=== PATIENT | male | born 1960 | race Caucasian/White ===

== ENCOUNTER → 2018-01-19 | Outpatient (CLI) | payer OTHER ==
[~2018-01-19] MED LIST: ASPCH81X PO; CLOBETASOL PROPIONAT XX; CLOP1TAB15 PO; METO25TA56 PO; METR0.75 TOP; RANI150T85 PO
--- NOTE | 2018-01-19 09:37 | DIAGNOSTIC IMAGING REPORT ---
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 TECHNIQUE: Frontal and lateral views of the left lower leg were obtained. COMPARISON: None. FINDINGS: Knee joint and ankle mortise grossly intact. No acute fracture or malalignment. No advanced degenerative change. No radiographic soft tissue abnormality. IMPRESSION: No acute osseous injury. Electronically signed by: Laureano Ferraro M.D. 01/19/2018 9:36 AM Dictated Date/Time: 01/19/2018 9:34 AM
--- NOTE | 2018-01-19 09:45 | DIAGNOSTIC IMAGING REPORT ---
LEFT KNEE ULTRASOUND CLINICAL HISTORY: G57.30 Peroneal neuropathy at knee. Left knee pain. COMPARISON STUDY: Lower extremity venous Doppler 07/15/2016. FINDINGS: Real-time sonographic imaging of the left lateral knee and popliteal fossa was performed. No sonographic abnormality identified within the soft tissues. The popliteal vein is patent. No evidence for a popliteal cyst. IMPRESSION: No sonographic abnormality within the left knee. Electronically signed by: Baljinder Olivera M.D. 01/19/2018 9:44 AM Dictated Date/Time: 01/19/2018 9:42 AM
== END | disposition home or self-care (01) ==
LOC: C.ULTRBC 09:13
PROVIDERS: ATTEND Physician Assistant
DX: G57.30 Lesion of lateral popliteal nerve, unspecified lower limb (principal)

== ENCOUNTER 2019-03-31 13:29 | Inpatient (IN) ==
--- OUTSIDE RECORDS SUMMARY | 2019-03-31 13:34 | External Medical Summary | Continuity of Care Document ---
:1960 Author Name Horace Stoner, Provider Address Unavailable Unavailable , Care Team Providers Name Role Phone Unavailable Unavailable Unavailable NELLY SANCHEZ Unavailable Unavailable Unavailable Unavailable Unavailable Problems Rosacea (695.3) (L71.9) Other psoriasis (696.1) (L40.8) HTN, goal below 140/90 (401.9) (I10) Disc disorder of lumbar region (722.93) (M51.9) Thoracic and lumbosacral neuritis (724.4) (M54.14) Hyperlipidemia (272.4) (E78.5) Acquired renal cyst of right kidney (593.2) (N28.1) Carotid stenosis, non-symptomatic (433.10) (I65.29) Atherosclerosis with claudication of extremity (440.21) (I70 .219) GERD (gastroesophageal reflux disease) (530.81) (K21.9) Rhabdomyolysis due to statin therapy (728.88) (M62.82) Left arm weakness (729.89) (R29.898) Numbness in left leg (782.0) (R20.0) Arteriosclerosis of both carotid arteries (433.10) (I65.23) Dyslipidemia, goal LDL below 70 (272.4) (E78.5) Generalized weakness (780.79) (R53.1) Left middle cerebral artery stroke (434.91) (I63.512) Statins contraindicated (V64.1) (Z53.09) Chronic vascular insufficiency of intestine (557.1) (K55.1) Spinal stenosis of lumbar region without neurogenic claudication (724.02) (M48.061) Left foot drop (736.79) (M21.372) Peroneal neuropathy at knee (355.3) (G57.30) 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 Quantity: 15 Refills: 0 Clopidogrel Bisulfate 75 MG Oral Tablet; TAKE 1 TABLET DAILY . , M.D. 30 Tablet Bottle Refills: 0 Metoprolol Tartrate 25 MG Oral Tablet; TAKE 1 TABLET TWICE D Herbie LOPEZ Quantity: 60 Refills: 5 Aspirin 81 MG TABS; TAKE 1 TABLET DAILY. , M.D. Refills: 0 raNITIdine HCl - 150 MG Oral Tablet; TAKE 1 TABLET Daily PRN , M.D. Refills: 0 Procedures History of appendectomy Status: Complete d History of lumbar vertebral fusion Statu s: Completed History of gallbladder surgery Status: C ompleted History of bypass graft Status: Complete d Immunizations Immunizations not documented Family History Mother No pertinent family history (V49.89) (Z78.9) Status: Active Father No pertinent family history (V49.89) (Z78.9) Status: Active Plan of Treatment Planned Observations Planned Goals not documented Results No Known Results Results not documented Encounters Appointment; Renate Arriaza PA-C 14-Jan-2018 9:30 Encounter Diagnosis: Problem not documented Appointment; Samina Stiles III, M.D. 14-Jan-2018 9:30 Encounter Diagnosis: Problem not documented Appointment; Samina Stiles III, M.D. 30-Dec-2017 14:00 Encounter Diagnosis: Problem not documented Appointment; Samina Stiles III, M.D. 01-Dec-2017 8:00 Encounter Diagnosis: Problem not documented
[2019-03-31] MEDS ORDERED: NiCARDipine HCL INJ 2.5 MG/ML 10 ML AMP ONE (13:42)
[2019-03-31] MEDS ORDERED: fentaNYL citrate 100 MCG/2 ML VIAL ONE ×3 (13:42→14:17)
[2019-03-31] MEDS ORDERED: HEPARIN (PORCINE) 1000 UNIT/ML 10 ML (CATH LAB USE ONLY) ONE ×2 (13:42→15:17)
[2019-03-31] MEDS ORDERED: MIDAZOLAM HCL 1 MG/ML 2ML VIAL ONE ×2 (13:42→14:17)
[2019-03-31] MEDS ORDERED: NITROGLYCERIN/D5W 100MCG/ML 20ML SYR ONE (13:43)
[2019-03-31] MEDS ORDERED: SODIUM CHLORIDE 0.9% 1000ML 1,000 ML IV SCH ×3 (13:45→16:15)
[2019-03-31] MEDS ORDERED: fentaNYL citrate 100 MCG/2 ML VIAL IV STA (13:46)
[2019-03-31] MEDS ORDERED: ONDANSETRON INJ 2 MG/ML 2 ML VIAL IV STA (13:46)
--- NOTE | 2019-03-31 14:05 | XRay Report ---
XR chest 1V portable CLINICAL HISTORY: Chest pain COMPARISON STUDY: Chest radiograph and chest CT July 15, 2016. FINDINGS: Lung volumes are normal. There is no pneumothorax or pleural effusion. There is no consolid ation or evidence for pulmonary edema. Cardiac size is normal. Mediastinal contours are normal. Appea yeimi of the chest is unchanged. IMPRESSION: No acute cardiopulmonary findings. Electronically signed by: Michael Blunt M.D. 03/31/2019 2:03 PM
[2019-03-31] MEDS ORDERED: ONDANSETRON INJ 2 MG/ML 2 ML VIAL ONE (14:06)
--- NOTE | 2019-03-31 14:06 | Emergency Department Note ---
Entered by Nuvia Brito acting as a scribe for History of Present Illness General Chief complaint: Cardiac Assessment Time Seen by Provider: 03/31/19 13:34 Source: patient, EMS and other (nursing staff) History of Present Illness Provider complaint: nausea Onset (ago): minute(s) (shortly prior to arrival) Location: chest and abdomen Current Pain Intensity: 5 Quality: + other (nausea) Associated symptoms: + other (hot, dizzy) Treatments prior to arrival: other (Solu-Medrol, Benadryl IM) The patient is a 58 year old male who presents to the Emergency Department with nausea today shortly prior to arrival. He rates his discomfort at a 4 or a 5 out of a 10. The patient states that he was having an outpatient CT done and had a reaction to the dye. The patient states that he was having a CT done for abdominal pain and arterial problems in his GI tract. He states that he was sent here for a reaction to the dye and also got hot, dizzy, and nauseous. The patient states that he "does not believe that the heart attack happened." The patient states that he is on aspirin and Plavix. Per EMS, the patient's ECG was consistent with a STEMI. Nursing staff states that the patient was given Solu-Medrol and Benadryl IM prior to arrival. Home Medications Home Medications Medication Instructions Recorded Confirmed Type aspirin 81 mg PO DAILY 03/31/19 03/31/19 History clopidogrel 75 mg PO DAILY 03/31/19 03/31/19 History lisinopril [Zestril] 5 mg PO QAM 30 Days #30 tab 03/31/19 Rx metoprolol tartrate 25 mg PO BID 03/31/19 03/31/19 History ranitidine HCl 150 mg PO DAILY PRN 03/31/19 03/31/19 History Allergies Allergy/AdvReac Type Severity Reaction Status Date / Time Iodinated Contrast- Oral and Allergy Severe Verified 03/31/19 17:17 IV Dye [id number]-Opt Reductase AdvReac Intermediate GI SYMPTOMS Verified 10/13/16 16:59 Inhibitor Past Med/Surg History Medical History Diabetes (Chronic) Foot drop, left (Chronic) PVD (peripheral vascular disease) (Chronic) S/P left common iliac stent via left femoral approach performed by Dr. Friedman at [facility] on 03/01/11 for LLE claudication. Guillain Smyth syndrome (Chronic) Post op. 2016 CVA (cerebral vascular accident) (Chronic) 2016 - lacunar infart GERD (gastroesophageal reflux disease) (Chronic) History of ventricular tachycardia (Chronic) H/O post op non-sustained VT in 2010 Mesenteric ischemia (Chronic) 12/28/10: S/P SMA angioplasty and stenting (6 mm x 15 mm balloon expandable stent proximally and 5 mm x 24 mm balloon expandable stent distally) for mesenteric ischemia 12/28/[address] Friedman. At present still having nausea difficult to distinguish this from coronary angina 10/18/11: S/P balloon angioplasty of superior mesenteric artery for in-stent restenosis on by Dr. Friedman at [facility], performed for recurrent symptoms of mesenteric ischemia. 06/13/12: S/P redo superior mesenteric artery angioplasty and stenting using 6 mm x 22 mm iCAST covered stent by Dr. Friedman at [facility], performed for recurrent symptoms of mesenteric ischemia. 05/27/16: S/P Superior mesenteric artery catheterization and angiography by Dr. Anglin at [facility] 05/27/16: S/P supraceliac aorta to common hepatic artery Dacron bypass graft [OCCLUDED], Supraceliac aorta to superior mesenteric artery Dacron bypass graft by Dr. Anglin on 05/27/16 06/17/18: S/P re-do mesenteric artery bypass from left external iliac artery to distal superior mesenteric artery branch using reversed right greater saphenous vein by Dr. Friedman at [facility] HTN (hypertension) (Chronic) Dyslipidemia (Chronic) Renal insufficiency (Chronic) Surgical History History of cholecystectomy (Chronic) History of appendectomy (Chronic) Family History Other Cancer Social History Preferred Language: Mongolian Communication Ability: Effective Beliefs That Will Affect Care: None Current Living Situation: Alone Other Information That Helps Us Care for You: No Feels Safe at Home: Yes Safety Concerns: Feels Safe At This Time Smoking Status: Former smoker Hx Alcohol Use: No Hx Substance Use: No Review of Systems See HPI for pertinent positives & negatives. and A total of 10 systems reviewed and were otherwise negative Physical Exam Vital Signs Vital Signs - 24 hr 03/31/19 13:44 03/31/19 13:48 Temperature 36.3 C L Temperature Source Oral Sepsis Recent Fever Within 48 Hours No Sepsis New/Unexplained Change in Mental Status No Sepsis Action Taken by Nursing No Action Required Pulse Rate 71 Pulse Rate [Left Finger] 78 Respiratory Rate 20 24 Respiratory Effort / Characteristics Non-Labored Spontaneous Respiratory Depth Normal Respiratory Pattern Regular Blood Pressure 173/110 H Blood Pressure [Left Arm] 173/110 H Blood Pressure Mean 131 Blood Pressure Mean [Left Arm] 131 Pulse Oximetry 97 96 Oxygen Delivery Method Room Air Room Air GENERAL: Awake, alert, uncomfortable and anxious-appearing. HENT: Normocephalic, atraumatic. Oropharynx with dry mucous membranes and otherwise unremarkable without oropharyngeal injection, edema, tongue elevation or trismus. EYES: Normal conjunctiva. Sclera non-icteric. NECK: Supple. No nuchal rigidity. FROM. No JVD. No Stridor. RESPIRATORY: Clear to auscultation bilaterally. CARDIAC: Regular rate, normal rhythm. Extremities warm and well perfused. Pulses equal. ABDOMEN: Soft, non-distended. No tenderness to palpation. No rebound or guarding. No masses. RECTAL: Deferred. MUSCULOSKELETAL: Chest examination reveals no tenderness. The back is symmet rical on inspection without obvious abnormality. There is no CVA tenderness to palpation. No joint edema. LOWER EXTREMITIES: Calves are equal size bilaterally and non-tender. No edema. No discoloration. NEURO: Normal sensorium. No sensory or motor deficits noted. SKIN: Mild erythema/flushing of the face and chest. Course 1334: The patient was evaluated in room B2. A history and physical were performed. 1338: A heart alert was called on the patient. 1350: Dr. Hudson is aware of the patient. He will be going to the catheterization lab. 1402: I discussed the patient's case with Rhonda Evnas who will evaluate the patient for further management. Consultations Consultation #1: Rhonda Evans Time: 14:02 Administered Medications Discontinued Medications Clopidogrel Bisulfate (Plavix) Confirm Administered Dose 600 mg .ROUTE .[facility]-MED ONE Stop: 03/31/19 15:13 Last Admin: 03/31/19 15:58 Dose: Not Given Documented by: [id number] Fentanyl Citrate (Fentanyl Citrate) Confirm Administered Dose 100 mcg .ROUTE .STK-MED ONE Stop: 03/31/19 13:43 Last Increment: 03/31/19 13:53 Dose: 50 mcg Documented by: [id number] Fentanyl Citrate (Fentanyl Citrate) 50 mcg IV NOW STA Stop: 03/31/19 13:47 Last Admin: 03/31/19 15:57 Dose: Not Given Documented by: [id number] Fentanyl Citrate (Fentanyl Citrate) Confirm Administered Dose 100 mcg .ROUTE .STK-MED ONE Stop: 03/31/19 13:51 Last Admin: 03/31/19 15:57 Dose: Not Given Documented by: [id number] Fentanyl Citrate (Fentanyl Citrate) Confirm Administered Dose 100 mcg .ROUTE .STK-MED ONE Stop: 03/31/19 14:18 Last Admin: 03/31/19 15:58 Dose: Not Given Documented by: [id number] Heparin Sodium (Porcine) (Heparin Iv Bolus ([facility] Use Only)) Confirm Administered Dose 10,000 units .ROUTE .ST-MED ONE Stop: 03/31/19 13:43 Last Admin: 03/31/19 15:56 Dose: Not Given Documented by: [id number] Heparin Sodium (Porcine) (Heparin Iv Bolus ([facility] Use Only)) Confirm Administered Dose 10,000 units .ROUTE .ST-MED ONE Stop: 03/31/19 15:18 Last Admin: 03/31/19 15:58 Dose: Not Given Documented by: [id number] Heparin Sodium/Sodium Chloride (Heparin/Nss 1000 Unit/500ml Flush Bag) Confirm Administered Dose 3,000 units IV .STK-MED ONE Stop: 03/31/19 13:43 Last Admin: 03/31/19 15:56 Dose: Not Given Documented by: [id number] Hydrocortisone Sodium Succinate (Solu-Cortef) Confirm Administered Dose 200 mg .ROUTE .STK-MED ONE Stop: 03/31/19 14:08 Last Admin: 03/31/19 15:58 Dose: Not Given Documented by: [id number] Sodium Chloride (Nss 1000ml) 1,000 mls @ 999 mls/hr IV .[id number] [facility] Stop: 03/31/19 14:45 Last Admin: 03/31/19 15:57 Dose: Not Given Documented by: [id number] Sodium Chloride (Nss 1000ml) 1,000 mls @ 80 mls/hr IV .[id number] [facility] Stop: 03/31/19 16:01 Last Infusion: 03/31/19 16:53 Dose: 0 mls/hr Documented by: [id number] Admin: 03/31/19 16:01 Dose: 80 mls/hr Documented by: [id number] Nitroglycerin/Dextrose (Nitroglycerin/D5w 100 Mcg/Ml) 250 mls @ 0 mls/hr IV .Q0M JARVIS; Protocol Stop: 04/30/19 15:59 Last Titration: 03/31/19 16:08 Dose: 0 mcg/min, 0 mls/hr Documented by: [id number] Admin: 03/31/19 16:03 Dose: 20 mcg/min, 12 mls/hr Documented by: [id number] Cosigned by: [id number] Sodium Chloride (Nss 1000ml) 1,000 mls @ 80 mls/hr IV .[id number] [facility] Stop: 04/30/19 16:14 Last Admin: 03/31/19 16:52 Dose: 80 mls/hr Documented by: [id number] Labetalol HCl (Normodyne ([facility]inator Use Only)) Confirm Administered Dose 5 mg .ROUTE .STK-MED ONE Stop: 03/31/19 14:24 Last Admin: 03/31/19 15:58 Dose: Not Given Documented by: [id number] Midazolam HCl (Versed) Confirm Administered Dose 2 mg .ROUTE .STK-MED ONE Stop: 03/31/19 13:43 Last Admin: 03/31/19 15:57 Dose: Not Given Documented by: [id number] Midazolam HCl (Versed) Confirm Administered Dose 2 mg .ROUTE .STK-MED ONE Stop: 03/31/19 14:18 Last Admin: 03/31/19 15:58 Dose: Not Given Documented by: [id number] Morphine Sulfate (Morphine Sulfate) Confirm Administered Dose 2 mg .ROUTE .STK- MED ONE Stop: 03/31/19 16:32 Last Admin: 03/31/19 16:51 Dose: Not Given Documented by: [id number] Morphine Sulfate (Morphine Sulfate) 2 mg IV NOW STA Stop: 03/31/19 16:46 Last Admin: 03/31/19 16:51 Dose: 2 mg Documented by: [id number] Morphine Sulfate (Morphine Sulfate) 1 mg IV NOW STA Stop: 03/31/19 17:30 Last Admin: 03/31/19 17:36 Dose: 1 mg Documented by: [id number] Nicardipine HCl (Cardene) Confirm Administered Dose 25 mg .ROUTE .STK-MED ONE Stop: 03/31/19 13:43 Last Admin: 03/31/19 15:56 Dose: Not Given Documented by: [id number] Nitroglycerin/Dextrose (Nitroglycerin/D5w 100 Mcg/Ml 20ml Syringe) Confirm Administered Dose 2,000 mcg .ROUTE .STK-MED ONE Stop: 03/31/19 13:44 Last Admin: 03/31/19 16:04 Dose: Not Given Documented by: [id number] Nitroglycerin/Dextrose (Nitroglycerin/D5w 100 Mcg/Ml) Confirm Administered Dose 25 mg .ROUTE .STK-MED ONE Stop: 03/31/19 15:53 Last Admin: 03/31/19 16:04 Dose: Not Given Documented by: [id number] Ondansetron HCl (Zofran) 4 mg IV NOW STA Stop: 03/31/19 13:47 Last Admin: 03/31/19 15:57 Dose: Not Given Documented by: [id number] Ondansetron HCl (Zofran) Confirm Administered Dose 4 mg .ROUTE .STK-MED ONE Stop: 03/31/19 14:07 Last Admin: 03/31/19 15:40 Dose: 4 mg Documented by: [id number] Ticagrelor (Brilinta) Confirm Administered Dose 180 mg PO .STK-MED ONE Stop: 03/31/19 15:11 Last Admin: 03/31/19 15:58 Dose: Not Given Documented by: [id number] Medical Decision Making Differential Diagnosis Differential diagnosis: Etiologies such as shingles, musculoskeletal pain, pericarditis, myocarditis, cardiac ischemia, pericardial tamponade, pneumonia, pneumothorax, pleural effusion, hemothorax, pleurisy, aortic pathology, pulmonary embolism, intra- abdominal process, as well as others were considered. Medical Records Attestation: I reviewed the patient's medical records. Home Medications Current Medication List: was personally reviewed by me Laboratory Data Attestation: I reviewed the patient's lab results. Result diagrams: 03/31/19 14:17 03/31/19 15:55 Lab Results 03/31/19 03/31/19 03/31/19 Range/Units 14:17 14:17 14:17 WBC 21.59 H (4.8-10.8) K/uL RBC 5.52 (4.7-6.1) M/uL Hgb 16.4 (14.0-18.0) g/dL Hct 48.2 (42-52) % MCV 87.3 (80-100) fL MCH 29.7 (25-34) pg MCHC 34.0 (32-36) g/dL RDW Std Deviation 45.7 (36.4-46.3) fL RDW Coeff of Pepe 14.3 (11.5-14.5) % Plt Count 252 (130-400) K/uL MPV 9.9 (7.4-10.4) fL Immature Gran % (Auto) 0.4 % Neut % (Auto) 91.4 % Lymph % (Auto) 4.7 % [place] % (Auto) 3.5 % Eos % (Auto) 0.0 % Baso % (Auto) 0.0 % Immature Gran # (Auto) 0.09 H (0.00-0.02) K/uL Neut # (Auto) 19.71 H (1.4-6.5) K/uL Lymph # (Auto) 1.01 L (1.2-3.4) K/uL [place] # (Auto) 0.76 H (0.11-0.59) K/uL Eos # (Auto) 0.01 (0-0.5) K/uL Baso # (Auto) 0.01 (0-0.2) K/uL PT 10.2 (9.0-12.0) Seconds INR 1.0 (0.9-1.1) APTT 20.8 L (21.0-31.0) Seconds PTT Ratio 0.8 Activ Coag Time Kaolin (94-140) SECONDS Sodium 137 (136-145) mmol/L Potassium (3.5-5.1) mmol/L Chloride 108 H (98-107) mmol/L Carbon Dioxide 19 L (21-32) mmol/L Anion Gap 10.0 (3-11) BUN 20 H (7-18) mg/dl Creatinine 1.17 (0.6-1.4) mg/dl Est Cr Clr Drug Dosing 71.1 ml/min Est GFR ( Amer) 79.2 Est GFR (Non-Af Amer) 68.3 BUN/Creatinine Ratio 16.7 (10-20) Glucose 188 H (70-99) mg/dl Calcium 8.6 (8.5-10.1) mg/dl Magnesium (1.8-2.4) mg/dl Total Bilirubin 1.4 H (0.2-1) mg/dl AST (15-37) U/L ALT 27 (12-78) U/L Alkaline Phosphatase 73 (45-117) U/L Total Creatine Kinase (39-308) U/L CK-MB (CK-2) 3.5 (0.5-3.6) ng/ml CK/CKMB % Calc TNP Troponin I < 0.015 (0-0.045) ng/ml Total Protein 7.0 (6.4-8.2) gm/dl Albumin 3.4 (3.4-5.0) gm/dl Globulin 3.6 (2.5-4.0) gm/dl Albumin/Globulin Ratio 0.9 (0.9-2) Lipase 142 (73-393) U/L TSH 0.742 (0.300-4.500) uIu/ml 03/31/19 03/31/19 Range/Units 14:37 15:13 WBC (4.8-10.8) K/uL RBC (4.7-6.1) M/uL Hgb (14.0-18.0) g/dL Hct (42-52) % MCV (80-100) fL MCH (25-34) pg MCHC (32-36) g/dL RDW Std Deviation (36.4-46.3) fL RDW Coeff of Pepe (11.5-14.5) % Plt Count (130-400) K/uL MPV (7.4-10.4) fL Immature Gran % (Auto) % Neut % (Auto) % Lymph % (Auto) % [place] % (Auto) % Eos % (Auto) % Baso % (Auto) % Immature Gran # (Auto) (0.00-0.02) K/uL Neut # (Auto) (1.4-6.5) K/uL Lymph # (Auto) (1.2-3.4) K/uL [place] # (Auto) (0.11-0.59) K/uL Eos # (Auto) (0-0.5) K/uL Baso # (Auto) (0-0.2) K/uL PT (9.0-12.0) Seconds INR (0.9-1.1) APTT (21.0-31.0) Seconds PTT Ratio Activ Coag Time Kaolin 92 L 213 H (94-140) SECONDS Sodium (136-145) mmol/L Potassium (3.5-5.1) mmol/L Chloride (98-107) mmol/L Carbon Dioxide (21-32) mmol/L Anion Gap (3-11) BUN (7-18) mg/dl Creatinine (0.6-1.4) mg/dl Est Cr Clr Drug Dosing ml/min Est GFR ( Amer) Est GFR (Non-Af Amer) BUN/Creatinine Ratio (10-20) Glucose (70-99) mg/dl Calcium (8.5-10.1) mg/dl Magnesium (1.8-2.4) mg/dl Total Bilirubin (0.2-1) mg/dl AST (15-37) U/L ALT (12-78) U/L Alkaline Phosphatase (45-117) U/L Total Creatine Kinase (39-308) U/L CK-MB (CK-2) (0.5-3.6) ng/ml CK/CKMB % Calc Troponin I (0-0.045) ng/ml Total Protein (6.4-8.2) gm/dl Albumin (3.4-5.0) gm/dl Globulin (2.5-4.0) gm/dl Albumin/Globulin Ratio (0.9-2) Lipase (73-393) U/L TSH (0.300-4.500) uIu/ml Imaging Data Radiologist's Impression: Radiology results as stated below per my review and the radiologist's interpretation: XR chest 1V portable CLINICAL HISTORY: Chest pain COMPARISON STUDY: Chest radiograph and chest CT July 15, 2016. FINDINGS: Lung volumes are normal. There is no pneumothorax or pleural effusion. There is no consolidation or evidence for pulmonary edema. Cardiac size is normal. Mediastinal contours are normal. Appearance of the chest is unchanged. IMPRESSION: No acute cardiopulmonary findings. Electronically signed by: Michael Blunt M.D. 03/31/2019 2:03 PM ECG Data Attestation: I personally reviewed and interpreted this ECG as follows: Indication: nausea Rate (beats per minute): 69 Rhythm: normal sinus Findings: + other (normal axis, t-wave flattening in aVL); no PAC, no PVC, no ST depression, no ST elevation, no acute ischemic change and no ectopy Blood Pressure Blood Pressure Findings: Elevated blood pressure Blood Pressure Disposition: further management by hospitalist TANNER Narrative 50-year-old gentleman with a past medical history of PAD with history of mesenteric ischemia with multiple vascular procedures to his SMA including angioplasty and stenting as well as left common iliac stent by vascular surgery [facility], history of CVA, hypertension, renal insufficiency who presents emergency department for inferior ST elevation PR which occurred in the setting of having outpatient CT of his abdomen and pelvis with IV contrast in the setting of being pretreated for history of contrast allergy but subsequently developing allergic reaction where he developed flushing and subsequently became nauseated and diaphoretic with subsequent EKG demonstrating inferior ST elevations with reciprocal anterior ST depressions per hpi. I discussed the case with Dr. Mosher, [facility] cardiology who became involved in the patient's care at [facility] and described the patient's episode and subsequent EKG changes. Upon the patient's allergic reaction he was given 125 mg of Solu- Medrol and 50 mg of Benadryl in addition to 325 mg of aspirin. Upon arrival the patient is uncomfortable, anxious appearing, afebrile with stable vital signs. On exam the patient has mild continued flushing of his face and chest. Lungs are clear with no oral pharyngeal edema. No stridor. EKG transmitted by EMS and performed in the emergency department upon arrival show interim resolution of patient's ST elevations though with residual T wave flattening in aVL. Accompanying EKG from [facility] however does demonstrate initial concerning EKG changes demonstrating ST elevation in inferior leads with reciprocal anterior depressions. Heart alert was activated. Chest x-ray negative. Labs were difficult to obtain in the emergency department and therefore given report of recent outpatient labs today, will be performed by [facility] upon arterial access. Dr. Hudson, interventional cardiology was aware and awaiting for the patient in the [facility]. Patient's findings and plan were reviewed with the patient and his family members. Case was also discussed with Moon Dean, [facility], who evaluate the patient for admission. Impression & Plan ST elevation myocardial infarction (STEMI) Critical Care Time Critical Care Time: Yes Total Critical Care Time: 35 I have personally spent greater than 35 minutes of critical care time in the direct management of this patient. This includes bedside care, interpretation of diagnostic studies, and testing, discussion with consultants, patient, and family members, and other required patient management activities. This 35 minutes is in excess of all separately billable procedures. Discharge Plan Visit Data *Final* Discharge Date/Time: 03/31/19 14:00 Chief Complaint: Cardiac Assessment ED Provider: Rodrigo Bush Discharge Problem: ST elevation myocardial infarction (STEMI) Patient Disposition: Still a Patient Discharge Instructions Interventions: ED Discharge Assessment Last Done: 03/31/19 14:00 Discharge Problem: ST elevation myocardial infarction (STEMI) Qualifiers: Involved coronary artery: unspecified coronary artery Qualified Code(s): I21.3 - ST elevation (STEMI) myocardial infarction of unspecified site The scribe's documentation has been prepared under my direction and personally reviewed by me in its entirety. I confirm that the note above accurately ref lects all work, treatment, procedures, and medical decision making performed by me.
[2019-03-31] MEDS ORDERED: HYDROCORTISONE SOD SUCCINATE 100 MG/2 ML VIAL ONE (14:07)
[2019-03-31] MEDS ORDERED: LABETALOL HCL IV 5 MG/ML 20ML (CATH LAB USE ONLY) ONE (14:23)
[2019-03-31 14:32] LABS: Hematocrit (blood only) 48.2 % (42-52); Hemoglobin 16.4 g/dL (14.0-18.0); Mean Corpuscular Volume 87.3 fL (80-100); Mean Platelet Volume 9.9 fL (7.4-10.4); Platelet Count 252 K/uL (130-400); RDW Coefficient of Variation 14.3 % (11.5-14.5); RDW Standard Deviation 45.7 fL (36.4-46.3); Red Blood Count 5.52 M/uL (4.7-6.1); White Blood Count 21.59 K/uL (4.8-10.8)
[2019-03-31 14:43] LABS: Partial Thromboplastin Ratio 0.8; Partial Thromboplastin Time 20.8 Seconds (21.0-31.0); Prothrombin Time 10.2 Seconds (9.0-12.0)
[2019-03-31 15:00] LABS: Basophils # (auto) 0.01 K/uL (0-0.2); Eosinophils # (auto) 0.01 K/uL (0-0.5); Immature Granulocytes # (auto) 0.09 K/uL (0.00-0.02); Immature Granulocytes % (auto) 0.4 %; Lymphocytes # (auto) 1.01 K/uL (1.2-3.4); Lymphocytes % (auto) 4.7 %; Monocytes # (auto) 0.76 K/uL (0.11-0.59); Monocytes % (auto) 3.5 %; Neutrophils # (auto) 19.71 K/uL (1.4-6.5); Neutrophils % (auto) 91.4 %
[2019-03-31] MEDS ORDERED: TICAGRELOR 90 MG TAB PO ONE (15:10)
[2019-03-31] MEDS ORDERED: CLOPIDOGREL BISULFATE 300 MG TAB ONE (15:12)
[2019-03-31] MEDS ORDERED: ACETAMINOPHEN 325 MG TAB PO PRN (15:28)
[2019-03-31 15:36] LABS: Alanine Aminotransferase 27 U/L (12-78); Albumin Globulin Ratio 0.9 (0.9-2); Albumin Level 3.4 gm/dl (3.4-5.0); Alkaline Phosphatase 73 U/L (45-117); BUN Creatinine Ratio 16.7 (10-20); Bilirubin,Total 1.4 mg/dl (0.2-1); Blood Urea Nitrogen 20 mg/dl (7-18); Calcium 8.6 mg/dl (8.5-10.1); Carbon Dioxide 19 mmol/L (21-32); Chloride 108 mmol/L (98-107); Creatine Kinase MB 3.5 ng/ml (0.5-3.6); Creatinine Clr Calc Pharmacy 71.1 ml/min; Est GFR (African American) 79.2; Est GFR (Non-African American) 68.3; Globulin 3.6 gm/dl (2.5-4.0); Glucose 188 mg/dl (70-99); Sodium 137 mmol/L (136-145); Troponin I < 0.015 ng/ml (0-0.045)
[2019-03-31] MEDS ORDERED: NITROGLYCERIN/D5W 100 MCG/ML BTL ONE (15:52)
[2019-03-31] MEDS ORDERED: NITROGLYCERIN/D5W 100MCG/ML 250 ML IV SCH (16:00)
[2019-03-31 16:15] LABS: Potassium 4.6 mmol/L (3.5-5.1)
[2019-03-31 16:24] LABS: Magnesium 1.8 mg/dl (1.8-2.4)
[2019-03-31] MEDS ORDERED: MoRPHine SULFATE 2 MG/ML CARP ONE (16:31)
--- NOTE | 2019-03-31 16:35 | History & Physical Report ---
Date of Service March 31, 2019 Assessment & Plan (1) ST elevation myocardial infarction (STEMI): Sent from [facility], Patient developed severe substernal discomfort nausea diaphoresis after injecting IV contrast dye for CT abdomen pelvis CODE PURPLE was called On-call cardiology responded to the code, stat EKG showed inferior lateral leads ST elevation with reciprocal changes And was sent to [facility] via ambulance CODE HEART ALERT was called Patient was taken to cardiac Nonprofit Manager, underwent emergent coronary angiogram with PTCA, Noted to have severe coronary artery disease with occlusion of mid LAD, status post PETER PTCA, severely diseased RCA requiring 4 PETER stent placed by interventional cardiology Postprocedure patient was transferred to ICU Started to experience substernal discomfort nausea diaphoresis EKG showed acute change in the anterolateral leads Initially was given sublingual nitro, which caused sudden drop in blood pressure worsening of symptoms Given IV fluid bolus, blood pressure improved to 130/70 Patient continues to have anginal symptoms . Improvement with IV morphine Patient evaluated at bedside in ICU 109 by intervention air support operations operator/[facility] cardiology Dr. Ellis/machine wedger Given the complexity of nature, and ongoing angina post cardiac intervention: Patient will need higher level of care/tertiary center with advanced cardiac intervention upper extremity Plan of care discussed with patient and patient's by cardiology Agreeable for transfer Once bed availability accepting physician confirmed, patient will be life flighted to [facility] today (2) Mesenteric ischemia: Mesenteric ischemia (Chronic) hx of severe peripheral vascular disease, mesenteric ischemia, underwent multiple vascular procedure, bypass surgery Had vascular surgery follow-up appointment yesterday 03/30/2019 at [facility] Due to complaint of postprandial abdominal pain Vascular surgery was concern about possible stenosis /occlusion of mesentery Recommended CT a of abdomen pelvis, Patient has history of contrast dye allergy, will need prednisone pretreatment Patient's was offered to be admitted at [facility], follow the studies and further intervention if needed Patient refused admission P.o. pre-contrast steroid prep was sent to patient's local pharmacy [facility] Developed acute substernal chest discomfort, severe anginal symptoms while getting IV contrast dye for CT abdomen pelvis at [facility] Patient is being transferred to [facility] today-is continued to have ongoing anginal symptoms could be EKG change after emergent cardiac catheter/multiple percutaneous coronary intervention Vascular procedures done in past: 3/11/11: S/P SMA angioplasty and stenting (6 mm x 15 mm balloon expandable stent proximally and 5 mm x 24 mm balloon expandable stent distally) for mesenteric ischemia 12/28/[address] Friedman. 10/18/11: S/P balloon angioplasty of superior mesenteric artery for in-stent restenosis on by Dr. Friedman at [facility], performed for recurrent symptoms of mesenteric ischemia. 06/13/12: S/P redo superior mesenteric artery angioplasty and stenting using 6 mm x 22 mm iCAST covered stent by Dr. Friedman at [facility], performed for recurrent symptoms of mesenteric ischemia. 05/27/16: S/P Superior mesenteric artery catheterization and angiography by Dr. Anglin at [facility] 05/27/16: S/P supraceliac aorta to common hepatic artery Dacron bypass graft [OCCLUDED], Supraceliac aorta to superior mesenteric artery Dacron bypass graft by Dr. Anglin on 05/27/16 06/17/18: S/P re-do mesenteric artery bypass from left external iliac artery to distal superior mesenteric artery branch using reversed right greater saphenous vein by Dr. Friedman at [facility] (3) PVD (peripheral vascular disease): On aspirin Plavix, history of statin intolerance (4) Diabetes: Insulin sliding scale (5) HTN (hypertension): Avoid hypotensive episode, Can cause worsening of symptoms in the setting of RV ischemia/RCA MS Continue beta-sukhjinder with holding parameters Added low-dose BECKIE inhibitor CODE STATUS: Full code Disposition: Patient input from [facility] cardiology Dr. Ramo Ellis Patient is being transferred to [facility] for higher level of care/cardiac intervention History of Present Illness Chief Complaint: SOB Primary Care Provider: Braden Schultz DO Pt with PMH HTN, dyslipidemia, DM, mesenteric ischemia s/p mesenteric artery bypass, H/O post op non-sustained VT presented to ER from [facility] outpatient clinic for SOB and abnormal EKG. Pt was seen by vascular surgery in [place] yesterday, 03/30/19 for post prandial abdominal pain. Today he had outpatient CT ABD/PELVIS. Pt has hx IVP dye reaction and was pretreated with 50mg oral Benadryl 1 hr prior to procedure as well as prednisone 50mg 13 hours, 7 hours and 1 hour prior to procedure. After CT scan today it is reported pt had SOB, diaphoretic, nauseated. He was given 125mg Solu-Medrol, 50mg Bendaryl. He had EKG completed and it was viewed by Dr Mosher with cardiology with reported inferior ST elevation and anterior recipro karly ST segment depression. Pt was given 324mg Aspirin. Pt was transported to ER by EMS and upon arrival to ER heart alert was called and pt was taken to lab aid. Pt had 2 PETER placed to LAD, 4 stents placed to RCA by Dr Hudson. Pt with CP s/p cath with ST elevation inferior leads. Pt transferred to ICU from lab aid. In ICU pt was given nitroglycerin and became hypotensive and NSS bolus given. Further history, ROS, PE, Assessment and Plan per attending: Dr Reyez. Allergies Allergy/AdvReac Type Severity Reaction Status Date / Time [id number] Reductase AdvReac Intermediate GI SYMPTOMS Verified 10/13/16 16:59 Inhibitor Home Medications Home Medications Medication Instructions Recorded Confirmed Type aspirin 81 mg PO DAILY 03/31/19 03/31/19 History clopidogrel 75 mg PO DAILY 03/31/19 03/31/19 History lisinopril [Zestril] 5 mg PO QAM 30 Days #30 tab 03/31/19 Rx metoprolol tartrate 25 mg PO BID 03/31/19 03/31/19 History ranitidine HCl 150 mg PO DAILY PRN 03/31/19 03/31/19 History Past Med/Surg History Medical History Diabetes (Chronic) Foot drop, left (Chronic) PVD (peripheral vascular disease) (Chronic) S/P left common iliac stent via left femoral approach performed by Dr. Friedman at [facility] on 03/01/11 for LLE claudication. Guillain Smyth syndrome (Chronic) Post op. 2016 CVA (cerebral vascular accident) (Chronic) 2016 - lacunar infart GERD (gastroesophageal reflux disease) (Chronic) History of ventricular tachycardia (Chronic) H/O post op non-sustained VT in 2010 Mesenteric ischemia (Chronic) 12/28/10: S/P SMA angioplasty and stenting (6 mm x 15 mm balloon expandable stent proximally and 5 mm x 24 mm balloon expandable stent distally) for mesenteric ischemia 12/28/[address] Friedman. 10/18/11: S/P balloon angioplasty of superior mesenteric artery for in-stent restenosis on by Dr. Friedman at [facility], performed for recurrent symptoms of mesenteric ischemia. 06/13/12: S/P redo superior mesenteric artery angioplasty and stenting using 6 mm x 22 mm iCAST covered stent by Dr. Friedman at [facility], performed for recurrent symptoms of mesenteric ischemia. 05/27/16: S/P Superior mesenteric artery catheterization and angiography by Dr. Anglin at [facility] 05/27/16: S/P supraceliac aorta to common hepatic artery Dacron bypass graft [OCCLUDED], Supraceliac aorta to superior mesenteric artery Dacron bypass graft by Dr. Anglin on 05/27/16 06/17/18: S/P re-do mesenteric artery bypass from left external iliac artery to distal superior mesenteric artery branch using reversed right greater saphenous vein by Dr. Friedman at [facility] HTN (hypertension) (Chronic) Dyslipidemia (Chronic) Renal insufficiency (Chronic) Surgical History History of cholecystectomy (Chronic) History of appendectomy (Chronic) Family History Other Cancer Social History Preferred Language: Samoan Communication Ability: Effective Beliefs That Will Affect Care: None Current Living Situation: Alone Other Information That Helps Us Care for You: No Feels Safe at Home: Yes Safety Concerns: Feels Safe At This Time Smoking Status: Former smoker Hx Alcohol Use: No Hx Substance Use: No Review of Systems Constitutional: + sweats, + fatigue and + weakness Eyes: no problem reported Ear, Nose, Mouth, Throat: no problem reported Respiratory: + dyspnea and + dyspnea on exertion Cardiovascular: + chest pain, + chest pain at rest, + dyspnea, + dyspnea at rest and + dyspnea on exertion Gastrointestinal: + abdominal pain and + nausea Genitourinary: no problem reported Musculoskeletal: no problem reported Integumentary: no problem reported Neurologic: + generalized weakness Physical Exam Constitutional: + ill appearing In moderate distress secondary to chest heaviness, shortness of breath Eyes: PERRL, conjunctivae normal, anicteric sclerae ENMT: external ear and nose normal, oropharynx normal Neck: trachea midline, no thyromegaly Respiratory: Auscultation: + diminished lung sounds; no crackles, no rales and no wheezes Diminished breath sounds no wheeze or rales noted Cardiovascular: RRR, no murmur, no edema Gastrointestinal (Abdomen): Inspection/Auscultation: + abnormal bowel sounds (Diminished bowel sounds) Percussion/Palpation: + abdomen tender and abdomen soft Multiple midline abdominal scar from prior surgical/vascular procedure Musculoskeletal: Extremities: extremities normal to inspection; no cyanosis and no clubbing Skin: no rashes, warm and dry Neurologic: PERRL, EOMI, accommodation nl, no face palsy, no dysarthria Psychiatric: Orientation: alert and oriented x 3 Mood: + anxious mood Results & Data Vital Signs (Past 12 Hours) Vital Signs Temp Pulse Pulse Resp BP BP Pulse Ox 03/31/19 15:42 36.3 C L 76 18 110/82 93 03/31/19 13:48 78 24 173/110 H 96 03/31/19 13:44 36.3 C L 71 20 173/110 H 97 Laboratory Results Short CBC 03/31/19 Range/Units 14:17 WBC 21.59 H (4.8-10.8) K/uL Hgb 16.4 (14.0-18.0) g/dL Hct 48.2 (42-52) % Plt Count 252 (130-400) K/uL BMP 03/31/19 03/31/19 14:17 15:55 Sodium 137 Potassium 4.6 Chloride 108 H Carbon Dioxide 19 L BUN 20 H Creatinine 1.17 Glucose 188 H Calcium 8.6 Cardiac Enzymes 03/31/19 03/31/19 Range/Units 14:17 15:55 Total Creatine Kinase 220 (39-308) U/L CK-MB (CK-2) 3.5 (0.5-3.6) ng/ml Troponin I < 0.015 (0-0.045) ng/ml Liver Function 03/31/19 03/31/19 Range/Units 14:17 15:55 Total Bilirubin 1.4 H (0.2-1) mg/dl AST 21 (15-37) U/L ALT 27 (12-78) U/L Alkaline Phosphatase 73 (45-117) U/L Albumin 3.4 (3.4-5.0) gm/dl Diagnostic Findings CXR: IMPRESSION: No acute cardiopulmonary findings. ECG Additional Comments: 15:34 - ST elevation inferior, anterior, lateral leads (1) ST elevation myocardial infarction (STEMI) Involved coronary artery: unspecified coronary artery Qualified Code(s): I2 1.3 - ST elevation (STEMI) myocardial infarction of unspecified site
[2019-03-31] MEDS ORDERED: MoRPHine SULFATE 2 MG/ML CARP IV STA ×2 (16:45→17:29)
--- NOTE | 2019-03-31 17:09 | Cardiology Consultation ---
Date of Consultation March 31, 2019 Assessment & Plan (1) ST elevation myocardial infarction (STEMI): (2) Contrast media allergy: (3) PVD (peripheral vascular disease): Patient has history of complex peripheral arterial disease with multiple procedures including redo mesenteric artery bypass from the left iliac artery to the distal superior mesenteric artery branch using a reverse right greater saphenous vein performed May 2018 at [facility]. It appears that the patient had a anaphylactoid reaction to iodinated contrast, and this unmasked his severe underlying two-vessel coronary artery disease. He has undergone complex RCA intervention, and also received two drug-eluting st ents to the LAD. Bedside echocardiogram reveals normal LV systolic function. The patient was reloaded with clopidogrel in the cardiac catheterization laboratory. He had a transient hypotension after IV nitroglycerin, but this has resolved post ceasing the nitroglycerin, and treating with IV fluids instead. Consistent with myocardial infarction with right ventricular involvement. This would also be consistent with his echo findings. The patient was reassessed at the bedside by Dr. Hudson of interventional cardiology and the undersigned and Dr Pink of critical care medicine. We discussed options such as going back to the cardiac catheterization laboratory, however Dr. Hudson felt confident that this was likely remnant of the downstream embolization and post reperfusion injury post prolonged complex RCA intervention. Ongoing supportive care was recommended along with transfer to tertiary care center for ongoing discipline evaluation. My concern is that if the patient has ongoing symptoms and becomes hypotensive again, he would not be a candidate for intra-aortic balloon pump due to his severe peripheral arterial disease. Also, there is ongoing concern that the Problem that started the patient's acute illness was his abdominal discomfort which in retrospect could have been angina, or ongoing mesenteric ischemia.At present it is very difficult to distinguish with the patient's complaint is actually describing.Recommend transfer to tertiary care center where more advanced capabilities are available including cardiac catheterization with CT surgery on-site back-up, as well as Vascular surgery. The patient and his spouse were both agreeable to this approach. I discussed the case with Dr Cristiane Suresh , double end tenoner operator for inpatient cardiology at [facility] who accepted the patient in transfer. History of Present Illness Attending Physician: Kailyn Reyez MD History of Present Illness Michelet Oviedo is a 58 year old male seen in cardiology consultation per the request of Dr Hudson to assume cardiology care of patient post cardiac catheterization. Mr Oviedo The patient has a history of complex peripheral arterial disease. He had presented to outpatient vascular surgery clinic at [facility] yesterday 03/30/2019 for complaint of worsening postprandial abdominal discomfort. Further inpatient evaluation was recommended but the patient declined. Instead presented for an outpatient CT angiogram of the abdomen and pelvis with IV contrast. Due to his past history of contrast allergy he received pretreatment with prednisone. The patient presented to the CT suite at [facility] with complaint of abdominal discomfort that have been waxing and waning recently. Contrast was administered for the CT scan and the patient developed shortness of breath. A rapid response was called and he was treated with 50 mg of IV Benadryl. He had ongoing shortness of breath, diaphoresis was noted, and continued abdominal pain as well as a sensation of tightness in his throat. Solu-Medrol 125 mg was administered for contrast dye reaction. A 12-lead EKG was performed revealing ST segment elevation in the inferior leads along with reciprocal anterior ST segment depression. The patient was transferred by EMS to the emergency department at the [facility]. On arrival, his EKG at first appeared improved. Because of the significance of his symptoms. He was taken for urgent cardiac catheterization by Dr. Hudson of interventional cardiology via the heart alert protocol for ST segment elevation myocardial infarction. The patient received 200 mg of IV Solu-Medrol for additional contrast prophylaxis. Cardiac catheterization revealed two-vessel coronary artery disease including complex diffuse multilevel stenosis of the right coronary artery. He received 2 drug-eluting stents to the mid LAD, and 4 drug-eluting stents to the proximal through mid portions of the right coronary artery. The patient vital signs were stable throughout the complex coronary artery procedure. Post procedure he was transferred to the intensive care unit where he described ongoing nauseousness and chest tightness. Repeat EKG revealed [address] segment elevations noted in the inferior and lateral leads, more pronounced than his initial presenting EKG.The patient was assessed by the undersigned. Low-dose IV nitroglycerin was initially started because he had demonstrated having tolerated nitroglycerin sublingually previously in the Opening [employer] [facility]. The patient however subsequently became more hypotensive, with a systolic blood pressure in the range of 60 to 70 mmHg. Glycerin was therefore discontinued with thoughts that there was likely right ventricular involvement, and therefore IV fluids were started in its place. The patient's blood pressure recovered with a systolic blood pressure in the 130s after receiving 1/2 L of normal saline by bolus. At present the patient has ongoing vague abdominal discomfort that is very difficult to distinguish between his presenting abdominal complaints versus recurrent angina. A bedside transthoracic echocardiogram was performed revealing moderate concentric left ventricular hypertrophy with normal LVEF. The right ventricle appeared small and underfilled on initial images.No pericardial effusion was noted. Allergies Allergy/AdvReac Type Severity Reaction Status Date / Time Iodinated Contrast- Oral and Allergy Severe Verified 03/31/19 17:17 IV Dye Uannarn-Cdf-Wma Reductase AdvReac Intermediate GI SYMPTOMS Verified 10/13/16 16:59 Inhibitor Home Medications Home Medications Medication Instructions Recorded Confirmed Type aspirin 81 mg PO DAILY 03/31/19 03/31/19 History clopidogrel 75 mg PO DAILY 03/31/19 03/31/19 History lisinopril [Zestril] 5 mg PO QAM 30 Days #30 tab 03/31/19 Rx metoprolol tartrate 25 mg PO BID 03/31/19 03/31/19 History ranitidine HCl 150 mg PO DAILY PRN 03/31/19 03/31/19 History Patient History Medical History Diabetes (Chronic) Foot drop, left (Chronic) PVD (peripheral vascular disease) (Chronic) S/P left common iliac stent via left femoral approach performed by Dr. Friedman at [facility] on 03/01/11 for LLE claudication. Guillain Smyth syndrome (Chronic) Post op. 2016 CVA (cerebral vascular accident) (Chronic) 2016 - lacunar infart GERD (gastroesophageal reflux disease) (Chronic) History of ventricular tachycardia (Chronic) H/O post op non-sustained VT in 2010 Mesenteric ischemia (Chronic) 12/28/10: S/P SMA angioplasty and stenting (6 mm x 15 mm balloon expandable stent proximally and 5 mm x 24 mm balloon expandable stent distally) for mesenteric ischemia 12/28/[address] Friedman. 10/18/11: S/P balloon angioplasty of superior mesenteric artery for in-stent restenosis on by Dr. Friedman at [facility], performed for recurrent symptoms of mesenteric ischemia. 06/13/12: S/P redo superior mesenteric artery angioplasty and stenting using 6 mm x 22 mm iCAST covered stent by Dr. Friedman at [facility] [facility], performed for recurrent symptoms of mesenteric ischemia. 05/27/16: S/P Superior mesenteric artery catheterization and angiography by Dr. Anglin at [facility] 05/27/16: S/P supraceliac aorta to common hepatic artery Dacron bypass graft [OCCLUDED], Supraceliac aorta to superior mesenteric artery Dacron bypass graft by Dr. Anglin on 05/27/16 06/17/18: S/P re-do mesenteric artery bypass from left external iliac artery to distal superior mesenteric artery branch using reversed right greater saphenous vein by Dr. Friedman at [facility] [facility] HTN (hypertension) (Chronic) Dyslipidemia (Chronic) Renal insufficiency (Chronic) Surgical History History of cholecystectomy (Chronic) History of appendectomy (Chronic) Family History Other Cancer Social History Preferred Language: Urdu Communication Ability: Effective Beliefs That Will Affect Care: None Current Living Situation: Alone Other Information That Helps Us Care for You: No Feels Safe at Home: Yes Safety Concerns: Feels Safe At This Time Smoking Status: Former smoker Hx Alcohol Use: No Hx Substance Use: No Review of Systems Review of Systems: All systems reviewed & are unremarkable except as noted in HPI & below Physical Exam Constitutional: + ill appearing Respiratory: normal respiratory effort, lungs clear to auscultation Cardiovascular: RRR, no murmur, no edema Vessels: no JVD Extremities: no edema Gastrointestinal (Abdomen): Percussion/Palpation: + abdomen tender and abdomen soft Neurologic: PERRL, EOMI, accommodation nl, no face palsy, no dysarthria Results & Data Vital Signs (Past 12 Hours) Vital Signs Temp Pulse Pulse Resp BP BP Pulse Ox 03/31/19 16:40 80 19 100 03/31/19 16:30 78 19 126/98 99 03/31/19 16:25 79 19 120/84 99 03/31/19 16:20 78 17 136/80 98 03/31/19 16:15 75 21 106/76 98 03/31/19 16:14 75 18 90/65 L 98 03/31/19 16:11 71 18 66/43 L 91 06/12/19 16:10 76 17 91 03/31/19 16:08 76 17 62/46 L 90 03/31/19 16:03 75 14 76/61 L 94 03/31/19 16:00 73 22 89/61 L 93 03/31/19 15:45 78 22 123/88 93 03/31/19 15:42 36.3 C L 76 18 110/82 93 03/31/19 13:48 78 24 173/110 H 96 03/31/19 13:44 36.3 C L 71 20 173/110 H 97 Laboratory Results Cardiac Enzymes 03/31/19 03/31/19 Range/Units 14:17 15:55 AST 21 (15-37) U/L CK-MB (CK-2) 3.5 (0.5-3.6) ng/ml Troponin I < 0.015 (0-0.045) ng/ml Coagulation 03/31/19 Range/Units 14:17 PT 10.2 (9.0-12.0) Seconds APTT 20.8 L (21.0-31.0) Seconds CBC 03/31/19 Range/Units 14:17 WBC 21.59 H (4.8-10.8) K/uL RBC 5.52 (4.7-6.1) M/uL Hgb 16.4 (14.0-18.0) g/dL Hct 48.2 (42-52) % Plt Count 252 (130-400) K/uL Neut # (Auto) 19.71 H (1.4-6.5) K/uL Lymph # (Auto) 1.01 L (1.2-3.4) K/uL [place] # (Auto) 0.76 H (0.11-0.59) K/uL Eos # (Auto) 0.01 (0-0.5) K/uL Baso # (Auto) 0.01 (0-0.2) K/uL Comprehensive Metabolic Panel 03/31/19 03/31/19 Range/Units 14:17 15:55 Sodium 137 (136-145) mmol/L Potassium 4.6 (3.5-5.1) mmol/L Chloride 108 H (98-107) mmol/L Carbon Dioxide 19 L (21-32) mmol/L BUN 20 H (7-18) mg/dl Creatinine 1.17 (0.6-1.4) mg/dl Glucose 188 H (70-99) mg/dl Calcium 8.6 (8.5-10.1) mg/dl AST 21 (15-37) U/L ALT 27 (12-78) U/L Alkaline Phosphatase 73 (45-117) U/L Total Protein 7.0 (6.4-8.2) gm/dl Albumin 3.4 (3.4-5.0) gm/dl Intake and Output 03/31/19 03/31/19 03/31/19 06:59 14:59 22:59 Intake Total 70.333 / 70.333 Output Total 71 / 71 Balance -0.667 / -0.667 Intake: IV 70.333 / 70.333 NITROGLYCERIN/D5w 100 Mcg/Ml 250 ML @ 0 MCG/MIN IV .Q0M JARVIS Rx#:[id number] Nss 1000ML 1,000 ml @ 80 mls/hr 69.333 / 69.333 IV .[id number] JARVIS Rx#:[id number] Output: Urine 70 / 70 # Bowel Movements Other: Weight 73.1 kg 73.5 kg Patient Weight 04/01/19 06:59 Weight 73.5 kg Diagnostic Findings EKG tracings as outlined in the HPI. (1) ST elevation myocardial infarction (STEMI) Involved coronary artery: unspecified coronary artery Qualified Code(s): I21.3 - ST elevation (STEMI) myocardial infarction of unspecified site
--- NOTE | 2019-03-31 17:21 | Discharge Summary ---
Date of Service March 31, 2019 Admission HPI Per Admitting Provider Pt with PMH HTN, dyslipidemia, DM, mesenteric ischemia s/p mesenteric artery bypass, H/O post op non-sustained VT presented to ER from [facility] outpatient clinic for SOB and abnormal EKG. Pt was seen by vascular surgery in [place] yesterday, 03/30/19 for post prandial abdominal pain. Today he had outpatient CT ABD/PELVIS. Pt has hx IVP dye reaction and was pretreated with 50mg oral Benadryl 1 hr prior to procedure as well as prednisone 50mg 13 hours, 7 hours and 1 hour prior to procedure. After CT scan today it is reported pt had SOB, diaphoretic, nauseated. He was given 125mg Solu-Medrol, 50mg Bendaryl. He had EKG completed and it was viewed by Dr Mosher with cardiology with reported inferior ST elevation and anterior reciprocal ST segment depression. Pt was given 324mg Aspirin. Pt was transported to ER by EMS and upon arrival to ER heart alert was called and pt was taken to label coder. Pt had 2 PETER placed to LAD, 4 stents placed to RCA by Dr Hudson. Pt with CP s/p cath with ST elevation inferior leads. Pt transferred to ICU from label coder. In ICU pt was given nitroglycerin and became hypotensive and NSS bolus given. Further history, ROS, PE, Assessment and Plan per attending: Dr Reyez. Principal Diagnosis ST elevated AL, Discharge Exam Constitutional + ill appearing Eyes PERRL, conjunctivae normal, anicteric sclerae ENMT external ear and nose normal, oropharynx normal Neck trachea midline, no thyromegaly Respiratory Auscultation: + diminished lung sounds; no crackles, no rales and no wheezes Cardiovascular RRR, no murmur, no edema Gastrointestinal (Abdomen) Inspection/Auscultation: + abnormal bowel sounds (Diminished bowel sounds) Percussion/Palpation: + abdomen tender and abdomen soft Musculoskeletal Extremities: extremities normal to inspection; no cyanosis and no clubbing Skin no rashes, warm and dry Neurologic PERRL, EOMI, accommodation nl, no face palsy, no dysarthria Psychiatric Orientation: alert and oriented x 3 Mood: + anxious mood Discharge Data Allergies Allergy/AdvReac Type Severity Reaction Status Date / Time Iodinated Contrast- Oral and Allergy Severe Verified 03/31/19 17:17 IV Dye Gqvfqau-Czf-Iyn Reductase AdvReac Intermediate GI SYMPTOMS Verified 10/13/16 16:59 Inhibitor Consultations 03/31/19 14:01 ED Decision to Admit Stat 03/31/19 15:25 Consult Internal Medicine Routine 03/31/19 16:02 Consult Sanitary Engineering Teacher Routine 03/31/19 16:22 Consult Cardiology Routine 03/31/19 16:32 Burn CD for patient Routine Procedures Performed Operation Date: 03/31/19 13:45 Actual Procedures p Aspiration/PCI w/PETER for Stemi - Jem Lomeli MD s Drug Eluting Stent each ADDTL Vessel - Jem Lomeli MD s Cineradiography w/Routine Exam - Jem Lomeli MD s Cath, Left with Cors and Vent - Jem Lomeli MD Ordered Studies 03/31/19 13:45 CL Cath Imgs for PACS use only Stat Hospital Course (1) ST elevation myocardial infarction (STEMI): Sent from [facility], Patient developed severe substernal discomfort nausea diaphoresis after injecting IV contrast dye for CT abdomen pelvis CODE PURPLE was called On-call cardiology responded to the code, stat EKG showed inferior lateral leads ST elevation with reciprocal changes And was sent to [facility] ER via ambulance CODE HEART ALERT was called Patient was taken to cardiac Assembly Operator, underwent emergent coronary angiogram with PTCA, Noted to have severe coronary artery disease with occlusion of mid LAD, status post PETER PTCA, severely diseased RCA requiring 4 PETER stent placed by interventional cardiology Postprocedure patient was transferred to ICU Started to experience substernal discomfort nausea diaphoresis EKG showed acute change in the anterolateral leads Initially was given sublingual nitro, which caused sudden drop in blood pressure worsening of symptoms Given IV fluid bolus, blood pressure improved to 130/70 Patient continues to have anginal symptoms . Improvement with IV morphine Patient evaluated at bedside in ICU 109 by intervention moth proofer/[facility] cardiology Dr. Ellis/building guard deputy sheriff Given the complexity of nature, and ongoing angina post cardiac intervention: Patient will need higher level of care/tertiary center with advanced cardiac intervention upper extremity Plan of care discussed with patient and patient's by cardiology Agreeable for transfer Once bed availability accepting physician confirmed, patient will be life flighted to [facility] today (2) Mesenteric ischemia: Mesenteric ischemia (Chronic) hx of severe peripheral vascular disease, mesenteric ischemia, underwent multiple vascular procedure, bypass surgery Had vascular surgery follow-up appointment yesterday 03/30/2019 at [facility] Due to complaint of postprandial abdominal pain Vascular surgery was concern about possible stenosis /occlusion of mesentery Recommended CT a of abdomen pelvis, Patient has history of contrast dye allergy, will need prednisone pretreatment Patient's was offered to be admitted at [facility], fo llow the studies and further intervention if needed Patient refused admission P.o. pre-contrast steroid prep was sent to patient's local pharmacy [facility] Developed acute substernal chest discomfort, severe anginal symptoms while getting IV contrast dye for CT abdomen pelvis at [facility] Patient is being transferred to [facility] today-is continued to have ongoing anginal symptoms could be EKG change after emergent cardiac catheter/multiple percutaneous coronary intervention Vascular procedures done in past: 12/28/10: S/P SMA angioplasty and stenting (6 mm x 15 mm balloon expandable stent proximally and 5 mm x 24 mm balloon expandable stent distally) for mesenteric ischemia 12/28/[address] Friedman. 10/18/11: S/P balloon angioplasty of superior mesenteric artery for in-stent restenosis on by Dr. Friedman at [facility], performed for recurrent symptoms of mesenteric ischemia. 06/13/12: S/P redo superior mesenteric artery angioplasty and stenting using 6 mm x 22 mm iCAST covered stent by Dr. Friedman at [facility], performed for recurrent symptoms of mesenteric ischemia. 05/27/16: S/P Superior mesenteric artery catheterization and angiography by Dr. Anglin at [facility] 05/27/16: S/P supraceliac aorta to common hepatic artery Dacron bypass graft [OCCLUDED], Supraceliac aorta to superior mesenteric artery Dacron bypass graft by Dr. Anglin on 05/27/16 06/17/18: S/P re-do mesenteric artery bypass from left external iliac artery to distal superior mesenteric artery branch using reversed right greater saphenous vein by Dr. Friedman at [facility] (3) PVD (peripheral vascular disease): On aspirin Plavix, history of statin intolerance (4) Diabetes: Insulin sliding scale (5) HTN (hypertension): Avoid hypotensive episode, Can cause worsening of symptoms in the setting of RV ischemia/RCA AL Continue beta-sukhjinder with holding parameters Added low-dose BECKIE inhibitor CODE STATUS: Full code Disposition: Patient input from [facility] cardiology Dr. Ramo Ellis Patient is being transferred to [facility] for higher level of care/cardiac intervention Current Inpatient Medications Acetaminophen (Tylenol) 650 mg PO Q4H PRN PRN Reason: Mild Pain (scale 1-3) Stop: 04/30/19 15:27 Aspirin (Ecotrin Ectab) 81 mg PO DAILY [facility] Stop: 05/01/19 08:59 Clopidogrel Bisulfate (Plavix) 75 mg PO DAILY [facility] Stop: 05/01/19 08:59 Nitroglycerin/Dextrose (Nitroglycerin/D5w 100 Mcg/Ml) 250 mls @ 0 mls/hr IV .Q0M [facility]; Protocol Stop: 04/30/19 15:59 Last Titration: 03/31/19 16:08 Dose: 0 mcg/min, 0 mls/hr Documented by: Sodium Chloride (Nss 1000ml) 1,000 mls @ 80 mls/hr IV .[id number] [facility] Stop: 04/30/19 16:14 Last Admin: 03/31/19 16:52 Dose: 80 mls/hr Documented by: Lisinopril (Zestril) 5 mg PO QAM [facility] Stop: 05/01/19 08:59 Metoprolol Tartrate (Lopressor) 25 mg PO BID [facility] Stop: 04/30/19 20:59 Ranitidine HCl (Zantac) 150 mg PO DAILY [facility] Stop: 05/01/19 08:59 Total Time Total Time Spent Total Time Spent (In Minutes): Approximate 45 minutes Total Time Includes: Examination of the Patient, Discharge Planning, Medication Reconciliation and Communication With Other Providers Discharge Plan Discharge Items Patient Disposition: Transfer Acute Care Hospital Reason For Visit: HEART ALERT Discharge Diagnosis: ST elevated AL/severe coronary artery disease/ongoing angina after emergent cardiac cath post PTCA with multiple drug-eluting stents Discharge Goals: Decrease discomfort and Therapeutic intervention Activity: As commented below Activity Comment: Complete bedrest until evaluated by interventional cardiology at [facility] Non-emergency contact: Primary Care Provider Call non-emergency contact if: you have any medication questions Follow-up/Referrals: Braden Schultz DO [Primary Care Provider] - Diet: See below Diet Comment: N.p.o. Addtl Provider Instructions: Patient is being transferred to [facility] for cardiac intervention Prescriptions: New lisinopril [Zestril] 5 mg Tablet 5 mg PO QAM 30 Days Qty: 30 RF: 0 Continued clopidogrel 75 mg Tablet 75 mg PO DAILY RF: 0 aspirin 81 mg Tablet,Chewable 81 mg PO DAILY RF: 0 ranitidine HCl 150 mg Capsule 150 mg PO DAILY PRN (Reason: Heartburn) RF: 0 metoprolol tartrate 25 mg Tablet 25 mg PO BID RF: 0 Discontinued clobetasol 0.05 % shampoo 0.05 % topical DAILY PRN (Reason: Skin Irritation) RF: 0 Stand-Alone Forms: [facility] Discharge Orders: Discharge Order (Routine); Ordered 03/31/19 Ordered By: Kailyn Reyez Admission Data Admit Date/Time: 03/31/19 15:30 Attending Provider: Kailyn Reyez Admit Provider: Roberto Hudson Primary Care Provider: Braden Schultz Other Providers: Abdirashid Ellis ; Scott Garcia ; Johann Pink Service: Intensive Care Unit Other Interventions: Discharge Summary Assessment (RN) Last Done: 03/31/19 17:10
--- NOTE | 2019-03-31 17:26 | Operative Report ---
DATE OF OPERATION: 03/31/2019 PORT-A-CATH AND PCI INDICATIONS: Transient ST elevation in the posterior leads versus transient anterolateral ischemia in a 58-year-old male whose past medical history is significant for extensive peripheral vascular disease, the patient is treated at home with aspirin and Plavix, he has questionable compliance with metoprolol. I do not believe he is being treated for hypertension at home. He has no prior history of myocardial infarction and is not found to be in congestive heart failure. PROCEDURE PERFORMED: Include left heart cath, coronary cineangiography, PCI with drug-eluting stent times six (6), two (2) vessel LAD (1 PETER) and right coronary artery (5 PETER), radiological interpretation and supervision. METHOD: Upon arrival in the Senior Loan Officer, the patient was prepped and draped in the usual sterile fashion. After local anesthesia achieved with lidocaine, a long 6-Greenlandic sheath was placed in the right radial artery. Intra-arterial nicardipine and nitroglycerin were administered. Intravenous heparin was administered and titrated to an ACT in under 250 seconds. Sheath was aspirated and flushed. A 6-Greenlandic EBU 3.5 guiding catheter was advanced under fluoroscopic guidance to the central circulation where it was aspirated and flushed. After confirmation of adequate waveforms, it was advanced into the left main. Cineangiograms of the left coronary artery reviewed. A 0.014-inch Digital Camera Technician wire was advanced through the guiding catheter across the area of stenosis to the apical LAD. A 2.75 Xience 28 stent was positioned in the mid LAD and inflated to maximum pressures less than a minute. Balloon was withdrawn. Final cineangiograms were obtained. The wire was removed from the coronary artery. The guiding catheter removed from the left main under fluoroscopic guidance from the body where the sheath was aspirated and flushed. A 6-Greenlandic JR 3.5 guiding catheter was advanced over wire under fluoroscopic guidance to the central circulation where it was aspirated and flushed. After confirmation of adequate waveforms, it was advanced into the right coronary artery. Cineangiograms of the right coronary artery was reviewed. A 0.014-inch Digital Camera Technician wire was advanced through the guiding catheter across the area of stenosis of the apical PDA. A 2.0 Mini Trek 12 balloon catheter was advanced over wire under fluoroscopic guidance to the mid right coronary artery and inflated on multiple occasions to maximum pressure each for less than 1 minute. A 3.0 Xience 28 and then 3.0 Xience 15 stent were positioned in the mid, then proximal to mid right coronary artery, each inflated to maximum pressure for less than 1 minute. A 3.0 Xience 8 stent was positioned between the 2 stents and inflated to maximum pressure for less than a minute. Balloon was withdrawn. A 2.75 Xience 15 stent was positioned proximal to the most proximal stented segment and inflated to maximum pressure for less than a minute. Balloon was withdrawn. Subsequent cineangiograms demonstrated a small area of uncovered dissection, thus a 3.0 Xience 8 mm stent was positioned in the mid portion of the long stented mid segment and inflated to maximum pressure for less than a minute. Balloon was withdrawn. The entire stented segment was postdilated using a 3.0 NC Trek 15 to maximum pressure less than a minute on multiple occasions. Final cineangiograms were obtained and the wire was removed from the coronary artery. Guiding catheter was used to cross the aortic valve in retrograde fashion. Left ventricular end diastolic pressure was measured. The caths removed from left ventricle to the aorta with continuous pressure monitoring and removed from body where the sheath was aspirated and flushed. An external compression device was deployed over the right radial artery. The patient returned to his room in good condition. COMPLICATIONS: None. FINDINGS: Left main is normal. Left circumflex, circumflex marginal and posterolateral branches have relatively minor luminal irregularities only. Mid 50% stenosis of a small second posterolateral branch is noted. The left anterior descending artery is moderate in caliber with twin mid 70% stenoses of the mid LAD. First diagonal branch was free of significant disease. Second diagonal branch is small in caliber with ostial and proximal 75% stenosis. The right coronary artery is moderate in caliber with 3 mid RCA 90% stenoses. The distal right coronary artery, the posterior descending artery and the posterior AV extension of the right coronary are all free of significant disease. Left ventricular end diastolic pressure is normal. No significant aortic valve gradient is demonstrated. Final cineangiograms demonstrate no residual stenosis, no uncovered dissection and BERNIE grade 3 flow throughout the right coronary artery. IMPRESSION: Successful angioplasty and drug-eluting stent placement, apparently chronic subtotal occlusions of the right coronary artery and of the LAD. RECOMMENDATION: For Plavix plus aspirin for 1 full year. Continue medical therapy post [facility]. Echocardiogram to evaluate LV systolic function. I attest to the content of the Intraoperative Record and any orders documented therein. Any exceptions are noted below. MTDD
--- NOTE | 2019-03-31 17:31 | Critical Care Consultation ---
Date of Consultation March 31, 2019 Assessment & Plan (1) Contrast media allergy: (2) Mesenteric ischemia: (3) ST elevation myocardial infarction (STEMI): History of Present Illness Reason for Consultation: Heart alert, mandatory ICU evaluation Requesting Physician: Dr. Booker Attending Physician: Kailyn Reyez MD History of Present Illness The patient is a 58-year-old man with very complex medical history notable for known diffuse arteriosclerotic vascular disease status post previous CVA, aorto mesenteric bypass grafting with long complex postoperative course multiple percutaneous interventions on both mesenteric circulation and lower extremities, diabetes, and previous Guillain-Smyth syndrome. Patient had outpatient lower extremity CT angiogram with runoff studies today and despite premedication for dye allergy had a reaction to the dye. An EKG was obtained and demonstrated inferior ST segment elevation. Patient was then transferred to the Addiction Therapist and had emergent stent placement with one stent placed in his LAD and multiple stents placed in his RCA due to lengthy diffuse disease. He was then transferred to ICU on dual antiplatelet therapy but continued to have severe chest pain and nausea with persistent ST segment elevation. Nitroglycerin was added and he became hypotensive with systolics as low as the upper 60s so nitroglycerin was stopped and fluids were administered and his blood pressure returned to normotensive range. He was reevaluated by the interventional cardio logist who did not feel that he needed to return to the Addiction Therapist. We gave him 2 mg of morphine IV with improvement but not complete resolution of his chest pain. He has a known history of mesenteric angina and it is very difficult to distinguish those symptoms from true cardiac angina. That being the case it is been decided to transfer him to [facility] for higher level of care and transfer is being arranged by the cardiologists. Allergies Allergy/AdvReac Type Severity Reaction Status Date / Time Iodinated Contrast- Oral and Allergy Severe Verified 03/31/19 17:17 IV Dye [id number]-[id number] Reductase AdvReac Intermediate GI SYMPTOMS Verified 10/13/16 16:59 Inhibitor Home Medications Home Medications Medication Instructions Recorded Confirmed Type aspirin 81 mg PO DAILY 03/31/19 03/31/19 History clopidogrel 75 mg PO DAILY 03/31/19 03/31/19 History lisinopril [Zestril] 5 mg PO QAM 30 Days #30 tab 03/31/19 Rx metoprolol tartrate 25 mg PO BID 03/31/19 03/31/19 History ranitidine HCl 150 mg PO DAILY PRN 03/31/19 03/31/19 History Patient History Medical History Diabetes (Chronic) Foot drop, left (Chronic) PVD (peripheral vascular disease) (Chronic) S/P left common iliac stent via left femoral approach performed by Dr. Friedman at [facility] [place] on 03/01/11 for LLE claudication. Guillain Smyth syndrome (Chronic) Post op. 2016 CVA (cerebral vascular accident) (Chronic) 2016 - lacunar infart GERD (gastroesophageal reflux disease) (Chronic) History of ventricular tachycardia (Chronic) H/O post op non-sustained VT in 2010 Mesenteric ischemia (Chronic) 12/28/10: S/P SMA angioplasty and stenting (6 mm x 15 mm balloon expandable stent proximally and 5 mm x 24 mm balloon expandable stent distally) for mesenteric ischemia 12/28/[address] Friedman. 10/18/11: S/P balloon angioplasty of superior mesenteric artery for in-stent restenosis on by Dr. Friedman at [facility] [place], performed for recurrent symptoms of mesenteric ischemia. 06/13/12: S/P redo superior mesenteric artery angioplasty and stenting using 6 mm x 22 mm iCAST covered stent by Dr. Friedman at [facility] [place], performed for recurrent symptoms of mesenteric ischemia. 05/27/16: S/P Superior mesenteric artery catheterization and angiography by Dr. Anglin at [facility] [place] 05/27/16: S/P supraceliac aorta to common hepatic artery Dacron bypass graft [OCCLUDED], Supraceliac aorta to superior mesenteric artery Dacron bypass graft by Dr. Anglin on 05/27/16 06/17/18: S/P re-do mesenteric artery bypass from left external iliac artery to distal superior mesenteric artery branch using reversed right greater saphenous vein by Dr. Friedman at [facility] [place] HTN (hypertension) (Chronic) Dyslipidemia (Chronic) Renal insufficiency (Chronic) Surgical History History of cholecystectomy (Chronic) History of appendectomy (Chronic) Family History Other Cancer Social History Preferred Language: Tunisian Communication Ability: Effective Beliefs That Will Affect Care: None Current Living Situation: Alone Other Information That Helps Us Care for You: No Feels Safe at Home: Yes Safety Concerns: Feels Safe At This Time Smoking Status: Former smoker Hx Alcohol Use: No Hx Substance Use: No Review of Systems Review of Systems: All systems reviewed & are unremarkable except as noted in HPI & below Physical Exam Physical Exam: Patient is awake and alert, on initial exam he appeared significantly distressed complaining of chest pain after administration of morphine he is resting more comfortably but still having some pain. Head normocephalic atraumatic PERRLA EOMI sclera anicteric Neck supple no JVD adenopathy or bruits Lungs clear bilaterally no crackles no wheezing Cardiac regular rhythm no murmurs rubs or gallops Abdomen soft nontender no peritoneal signs bowel sounds present Extremities pink acyanotic. He has readily palpable pulses in the right foot and significantly diminished but still present pulses in the left foot. Neuro nonfocal Skin exam unremarkable Results & Data Vital Signs (Past 12 Hours) Vital Signs Temp Pulse Pulse Resp BP BP Pulse Ox 03/31/19 17:10 36.3 C L 76 19 110/82 100 03/31/19 16:40 80 19 100 03/31/19 16:30 78 19 126/98 99 03/31/19 16:25 79 19 120/84 99 03/31/19 16:20 78 17 136/80 98 03/31/19 16:15 75 21 106/76 98 03/31/19 16:14 75 18 90/65 L 98 03/31/19 16:11 71 18 66/43 L 91 03/31/19 16:10 76 17 91 03/31/19 16:08 76 17 62/46 L 90 03/31/19 16:03 75 14 76/61 L 94 03/31/19 16:00 73 22 89/61 L 93 03/31/19 15:45 78 22 123/88 93 03/31/19 15:42 36.3 C L 76 18 110/82 93 03/31/19 13:48 78 24 173/110 H 96 03/31/19 13:44 36.3 C L 71 20 173/110 H 97 Laboratory Results 03/31/19 03/31/19 03/31/19 Range/Units 15:55 15:45 15:13 WBC (4.8-10.8) K/uL RBC (4.7-6.1) M/uL Hgb (14.0-18.0) g/dL Hct (42-52) % MCV (80-100) fL MCH (25-34) pg MCHC (32-36) g/dL RDW Std Deviation (36.4-46.3) fL RDW Coeff of Pepe (11.5-14.5) % Plt Count (130-400) K/uL MPV (7.4-10.4) fL Immature Gran % (Auto) % Neut % (Auto) % Lymph % (Auto) % Canyon % (Auto) % Eos % (Auto) % Baso % (Auto) % Immature Gran # (Auto) (0.00-0.02) K/uL Neut # (Auto) (1.4-6.5) K/uL Lymph # (Auto) (1.2-3.4) K/uL Canyon # (Auto) (0.11-0.59) K/uL Eos # (Auto) (0-0.5) K/uL Baso # (Auto) (0-0.2) K/uL PT (9.0-12.0) Seconds INR (0.9-1.1) APTT (21.0-31.0) Seconds PTT Ratio Activ Coag Time Kaolin 213 H (94-140) SECONDS Sodium (136-145) mmol/L Potassium 4.6 (3.5-5.1) mmol/L Chloride (98-107) mmol/L Carbon Dioxide (21-32) mmol/L Anion Gap (3-11) BUN (7-18) mg/dl Creatinine (0.6-1.4) mg/dl Est Cr Clr Drug Dosing ml/min Est GFR ( Amer) Est GFR (Non-Af Amer) BUN/Creatinine Ratio (10-20) Glucose (70-99) mg/dl Calcium (8.5-10.1) mg/dl Magnesium 1.8 (1.8-2.4) mg/dl Total Bilirubin (0.2-1) mg/dl AST 21 (15-37) U/L ALT (12-78) U/L Alkaline Phosphatase (45-117) U/L Total Creatine Kinase 220 (39-308) U/L CK-MB (CK-2) (0.5-3.6) ng/ml CK/CKMB % Calc Troponin I (0-0.045) ng/ml Total Protein (6.4-8.2) gm/dl Albumin (3.4-5.0) gm/dl Globulin (2.5-4.0) gm/dl Albumin/Globulin Ratio (0.9-2) Lipase (73-393) U/L TSH (0.300-4.500) uIu/ml Nasal Screen MRSA (PCR) Pending 03/31/19 03/31/19 03/31/19 Range/Units 14:37 14:17 14:17 WBC (4.8-10.8) K/uL RBC (4.7-6.1) M/uL Hgb (14.0-18.0) g/dL Hct (42-52) % MCV (80-100) fL MCH (25-34) pg MCHC (32-36) g/dL RDW Std Deviation (36.4-46.3) fL RDW Coeff of Pepe (11.5-14.5) % Plt Count (130-400) K/uL MPV (7.4-10.4) fL Immature Gran % (Auto) % Neut % (Auto) % Lymph % (Auto) % Canyon % (Auto) % Eos % (Auto) % Baso % (Auto) % Immature Gran # (Auto) (0.00-0.02) K/uL Neut # (Auto) (1.4-6.5) K/uL Lymph # (Auto) (1.2-3.4) K/uL Canyon # (Auto) (0.11-0.59) K/uL Eos # (Auto) (0-0.5) K/uL Baso # (Auto) (0-0.2) K/uL PT 10.2 (9.0-12.0) Seconds INR 1.0 (0.9-1.1) APTT 20.8 L (21.0-31.0) Seconds PTT Ratio 0.8 Activ Coag Time Kaolin 92 L (94-140) SECONDS Sodium 137 (136-145) mmol/L Potassium (3.5-5.1) mmol/L Chloride 108 H (98-107) mmol/L Carbon Dioxide 19 L (21-32) mmol/L Anion Gap 10.0 (3-11) BUN 20 H (7-18) mg/dl Creatinine 1.17 (0.6-1.4) mg/dl Est Cr Clr Drug Dosing 71.1 ml/min Est GFR ( Amer) 79.2 Est GFR (Non-Af Amer) 68.3 BUN/Creatinine Ratio 16.7 (10-20) Glucose 188 H (70-99) mg/dl Calcium 8.6 (8.5-10.1) mg/dl Magnesium (1.8-2.4) mg/dl Total Bilirubin 1.4 H (0.2-1) mg/dl AST (15-37) U/L ALT 27 (12-78) U/L Alkaline Phosphatase 73 (45-117) U/L Total Creatine Kinase (39-308) U/L CK-MB (CK-2) 3.5 (0.5-3.6) ng/ml CK/CKMB % Calc TNP Troponin I < 0.015 (0-0.045) ng/ml Total Protein 7.0 (6.4-8.2) gm/dl Albumin 3.4 (3.4-5.0) gm/dl Globulin 3.6 (2.5-4.0) gm/dl Albumin/Globulin Ratio 0.9 (0.9-2) Lipase 142 (73-393) U/L TSH 0.742 (0.300-4.500) uIu/ml Nasal Screen MRSA (PCR) 03/31/19 Range/Units 14:17 WBC 21.59 H (4.8-10.8) K/uL RBC 5.52 (4.7-6.1) M/uL Hgb 16.4 (14.0-18.0) g/dL Hct 48.2 (42-52) % MCV 87.3 (80-100) fL MCH 29.7 (25-34) pg MCHC 34.0 (32-36) g/dL RDW Std Deviation 45.7 (36.4-46.3) fL RDW Coeff of Pepe 14.3 (11.5-14.5) % Plt Count 252 (130-400) K/uL MPV 9.9 (7.4-10.4) fL Immature Gran % (Auto) 0.4 % Neut % (Auto) 91.4 % Lymph % (Auto) 4.7 % Canyon % (Auto) 3.5 % Eos % (Auto) 0.0 % Baso % (Auto) 0.0 % Immature Gran # (Auto) 0.09 H (0.00-0.02) K/uL Neut # (Auto) 19.71 H (1.4-6.5) K/uL Lymph # (Auto) 1.01 L (1.2-3.4) K/uL Canyon # (Auto) 0.76 H (0.11-0.59) K/uL Eos # (Auto) 0.01 (0-0.5) K/uL Baso # (Auto) 0.01 (0-0.2) K/uL PT (9.0-12.0) Seconds INR (0.9-1.1) APTT (21.0-31.0) Seconds PTT Ratio Activ Coag Time Kaolin (94-140) SECONDS Sodium (136-145) mmol/L Potassium (3.5-5.1) mmol/L Chloride (98-107) mmol/L Carbon Dioxide (21-32) mmol/L Anion Gap (3-11) BUN (7-18) mg/dl Creatinine (0.6-1.4) mg/dl Est Cr Clr Drug Dosing ml/min Est GFR ( Amer) Est GFR (Non-Af Amer) BUN/Creatinine Ratio (10-20) Glucose (70-99) mg/dl Calcium (8.5-10.1) mg/dl Magnesium (1.8-2.4) mg/dl Total Bilirubin (0.2-1) mg/dl AST (15-37) U/L ALT (12-78) U/L Alkaline Phosphatase (45-117) U/L Total Creatine Kinase (39-308) U/L CK-MB (CK-2) (0.5-3.6) ng/ml CK/CKMB % Calc Troponin I (0-0.045) ng/ml Total Protein (6.4-8.2) gm/dl Albumin (3.4-5.0) gm/dl Globulin (2.5-4.0) gm/dl Albumin/Globulin Ratio (0.9-2) Lipase (73-393) U/L TSH (0.300-4.500) uIu/ml Nasal Screen MRSA (PCR) Medications Administered Home Medications Medication Instructions Recorded Confirmed Last Taken aspirin 81 mg PO DAILY 03/31/19 03/31/19 Unknown clopidogrel 75 mg PO DAILY 03/31/19 03/31/19 Unknown lisinopril [Zestril] 5 mg PO QAM 30 Days #30 tab 03/31/19 Unknown metoprolol tartrate 25 mg PO BID 03/31/19 03/31/19 Unknown ranitidine HCl 150 mg PO DAILY PRN 03/31/19 03/31/19 Unknown Active Medications Generic Name Dose Route Start Last Admin Trade Name Freq PRN Reason Stop Dose Admin Nitroglycerin/Dextrose 250 mls @ 0 mls/hr 03/31/19 16:00 03/31/19 16:08 Nitroglycerin/D5w 100 Mcg/Ml IV 04/30/19 15:59 0 mcg/min .Q0M JARVIS 0 mls/hr Titration Protocol 0 MCG/MIN Sodium Chloride 1,000 mls @ 80 mls/hr 03/31/19 16:15 03/31/19 16:52 Nss 1000ml IV 04/30/19 16:14 80 mls/hr .[id number] JARVIS Administration (1) ST elevation myocardial infarction (STEMI) Involved coronary artery: unspecified coronary artery Qualified Code(s): I21.3 - ST elevation (STEMI) myocardial infarction of unspecified site
[2019-03-31] MEDS ORDERED: METOPROLOL TARTRATE 25 MG TAB PO SCH (21:00)
--- NOTE | 2019-04-01 07:15 | Discharge Summary ---
DATE OF ADMISSION: 03/31/2019. DATE OF DISCHARGE: 03/31/2019. ADMITTING DIAGNOSIS: Chest pain. DISCHARGE DIAGNOSES: Non-ST elevated NM, unstable angina, peripheral vascular disease. This 58-year-old white male experienced a contrast dye reaction following CTA contrast to examine for splanchnic ischemia in the face of GI "fullness" as was his previous ischemic equivalent. During the procedure, the patient experienced itching and nausea. He presented to the ER with an EKG suspicious of ST elevation NM in the anterolateral leads. The patient was taken directly to the cardiac catheterization lab where 2 stents were placed in the LAD and extensively diseased right coronary artery was stented with multiple stents. The patient was transferred to the intensive care unit where he continued to experience both chest pain and GI fullness and nausea. Administration of sublingual nitroglycerin resulted in hypotension. IV fluids resulted in resumption of normal blood pressure. Echocardiogram demonstrated an under-filled right ventricle. The patient was transferred to a tertiary care facility for further evaluation.
[2019-04-01] MEDS ORDERED: LISINOPRIL 5 MG TAB PO SCH (09:00)
[2019-04-01] MEDS ORDERED: ASPIRIN 81 MG ECTAB PO SCH ×2 (09:00)
[2019-04-01] MEDS ORDERED: CLOPIDOGREL BISULFATE 75 MG TAB PO SCH (09:00)
== END 2019-03-31 18:20 | disposition short-term general hospital (02) | DRG 246 ==
LOC: ED 13:29 → CC 14:00 → SUATTDRO 15:30 → 1E 15:30